=== PATIENT | male | born 1985 | race Caucasian/White ===

== ENCOUNTER 2024-03-16 13:47 | Emergency (ER) | payer BC, OTHER ==
[~2024-03-16] VITALS: Ht 177.8 cm; Wt 95.3 kg
[2024-03-16] MEDS: FLUORESCEIN SODIUM 1 MG OPHTHALMIC STRIP OP ONE (10:30)
[2024-03-16] MEDS: PROPARACAINE (OPTHANINE 0.5%) 15 ML DROPS OP ONE (10:30)
[2024-03-16 13:55] VITALS: BP_SYST 116; PULSE 84; RESP 18; TEMP 97.4; O2SAT 98
[2024-03-16] MEDS ORDERED: FLUORESCEIN SODIUM 1 MG OPHTHALMIC STRIP OP ONE (14:06)
[2024-03-16] MEDS ORDERED: HYDR-3917 PO (14:15)
[2024-03-16] MEDS ORDERED: FLOEARD EACH EYE (14:15)
[2024-03-16 14:20] VITALS: BP_SYST 116; PULSE 84; RESP 18; TEMP 97.4; O2SAT 98
== END 2024-03-16 14:19 | disposition home or self-care (01) ==
LOC: SED 13:47
DX: T15.02XA Foreign body in cornea, left eye, initial encounter (principal); Z88.0 Allergy status to penicillin; Z79.899 Other long term (current) drug therapy; W44.8XXA Other foreign body entering into or through a natural orifice, initial encounter; Y93.89 Activity, other specified; Y92.89 Other specified places as the place of occurrence of the external cause; Y99.0 Civilian activity done for income or pay
CPT/HCPCS: 99284